=== PATIENT | female | born 1995 | race Two or more races ===

== ENCOUNTER 2021-10-08 20:29 | Emergency (ER) | payer MEDICAID ==
[~2021-10-08] VITALS: Ht 154.9 cm; Wt 50.0 kg
[2021-10-08 20:30] VITALS: BP 137/79
== END 2021-10-09 07:01 | disposition left against medical advice (07) ==
LOC: ER 20:29
DX: T78.40XA Allergy, unspecified, initial encounter (principal); X58.XXXA Exposure to other specified factors, initial encounter; Z91.19 Patient's noncompliance with other medical treatment and regimen
CPT/HCPCS: 99281